=== PATIENT | male | born 1970 | race Caucasian/White ===

== ENCOUNTER 2023-05-18 07:02 | Day surgery (SDC) | payer OTHER ==
[2023-05-18] MEDS ORDERED: NA CHLORIDE 0.9% 250 ML ONE (07:38)
[2023-05-18 08:14] VITALS: BMI 18.8
[2023-05-18 12:29] LABS: Hematocrit 27.1 % (39.6-49.0)
[2023-05-18 13:25] VITALS: BP 115/76; TEMP 99.3; O2SAT 98
== END 2023-05-18 12:25 | disposition home or self-care (01) ==
LOC: DS 07:02
PROVIDERS: ATTEND Internal Medicine Hematology & Oncology
DX: C34.12 Malignant neoplasm of upper lobe, left bronchus or lung (principal); J91.0 Malignant pleural effusion; G89.3 Neoplasm related pain (acute) (chronic); R63.4 Abnormal weight loss
CPT/HCPCS: 36415; 86900; 86850; 86901; 86920; 85018; 85014; 36430; P9016; J7050